=== PATIENT | female | born 1960 | race Caucasian/White ===

== ENCOUNTER 2017-09-26 08:24 | Emergency (ER) | payer BC ==
--- NOTE | 2017-09-26 08:47 | EDM.PDOC ---
ED HPI GENERAL MEDICAL PROBLEM - General Chief Complaint: Upper Extremity Injury/Pain Stated Complaint: LEFT SHOULDER PAIN Time Seen by Provider: 09/26/17 08:47 Source of Information: Reports: Patient History Limitations: Reports: No Limitations - History of Present Illness INITIAL COMMENTS - FREE TEXT/NARRATIVE: History of present illness: []Patient fell down approximately 9 stairs last night landing on her left upper extremity. Patient came in this morning complaining of left upper extremity pain from clavicle to hand. Patient denies any shortness of breath or difficulty breathing, abdominal pain, other extremity pain or back or neck pain. She denies losing consciousness. Patient states she does have carpal tunnel syndrome on her left upper extremity. Review of systems: As per history of present illness and below otherwise all systems reviewed and negative. Past medical history: As per history of present illness and as reviewed below otherwise noncontributory. Surgical history: As per history of present illness and as reviewed below otherwise noncontributory. Social history: No reported history of drug or alcohol abuse. Family history: As per history of present illness and as reviewed below otherwise noncontributory. Physical exam: General: Well developed, well nourished in NAD HEENT: Atraumatic, normocephalic, pupils reactive, negative for conjunctival pallor or scleral icterus, mucous membranes moist, throat clear, neck supple, nontender, trachea midline. Lungs: Clear to auscultation, breath sounds equal bilaterally, superior left chest wall swelling. Heart: S1S2, regular, negative for clicks, rubs, or JVD. Abdomen: Soft, nondistended, nontender. Negative for masses or hepatosplenomegaly. Negative for costovertebral tenderness. Pelvis: Stable nontender. Genitourinary: Deferred. Rectal: Deferred. Extremities: Ecchymosis over the elbow distal edema is mild radial pulses palpable with swelling limited range of motion of the whole upper extremity, negative for cords or calf pain. Neurovascular unremarkable. Neuro: Awake, alert, oriented. Cranial nerves II through XII unremarkable. Cerebellum unremarkable. Patient able to move fingers, brisk capillary refill, she does have numbness to the middle index and thumb. Patient was put in a long posterior splint and arm sling she's given tramadol and morphine for pain while in the ED Diagnostics: []X-rays of left upper extremity show displaced proximal left clavicle, a comminuted intra-articular olecranon fracture, comminuted impacted and angulated fracture distal radius and ulnar styloid fracture Therapeutics: []Pain meds given prior to x-rays taken. Dr. Cabrera was consulted and stated that there would need to be a vascular surgeon present for repair. Impression: []Left clavicular, olecranon and wrist fractures Plan: []Patient preferred to go to [place] and Dr. Contreras manager implementation for orthopedics at [facility] accepted the patient. Patient's IV was left in place as she was a difficult stick her who is a Net Mobile Developer will be driving her to [place] today and will be going to the ER Dr. Contreras excepts the patient and will admit her from there. Definitive disposition and diagnosis as appropriate pending reevaluation and review of above. 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 , - Past Surgical History Female Surgical History: Reports: Section, D&C Social & Family History - Family History Family Medical History: Noncontributory - Tobacco Use Smoking Status *Q: Current Every Day Smoker Years of Tobacco use: 20 Packs/Tins Daily: 0.5 - Recreational Drug Use Recreational Drug Use: No Review of Systems - Review of Systems Review Of Systems: See Below (See history of present illness) ED EXAM, GENERAL - Physical Exam Exam: See Below (See history of present illness) Course - Vital Signs Last Recorded V/S: Last Vital Signs Temp 97.3 F 09/26/17 08:42 Pulse 72 09/26/17 12:51 Resp 16 09/26/17 12:51 BP 140/86 09/26/17 12:51 Pulse Ox 97 09/26/17 12:51 - Orders/Labs/Meds Orders: Active Orders 24 hr Category Date Time Status Chest 2V [CR] Stat Exams 09/26/17 08:52 Taken Chest wo Cont [CT] Stat Exams 09/26/17 10:11 Taken Elbow 2V Lt [CR] Stat Exams 09/26/17 08:53 Taken Forearm 2V Lt [CR] Stat Exams 09/26/17 08:53 Taken Humerus Lt [CR] Stat Exams 09/26/17 08:52 Taken Shoulder Comp Lt [CR] Stat Exams 09/26/17 08:52 Taken Wrist 2V Lt [CR] Stat Exams 09/26/17 08:55 Taken Saline Lock Insert [OM.PC] Stat Oth 09/26/17 09:32 Ordered Meds: Medications Discontinued Medications Generic Name Dose Route Start Last Admin Trade Name Freq PRN Reason Stop Dose Admin Diphenhydramine HCl 25 mg 09/26/17 09:42 09/26/17 10:27 Benadryl IVPUSH 09/26/17 09:43 Not Given ONETIME ONE Methylprednisolone Sodium Succinate 125 mg 09/26/17 09:42 09/26/17 10:27 Solu-Medrol IVPUSH 09/26/17 09:43 Not Given ONETIME ONE Morphine Sulfate 4 mg 09/26/17 11:06 09/26/17 11:19 Morphine IVPUSH 09/26/17 11:07 4 mg ONETIME ONE Administration Ondansetron HCl 4 mg 09/26/17 11:06 09/26/17 11:19 Zofran IVPUSH 09/26/17 11:07 4 mg ONETIME ONE Administration Sodium Chloride 10 ml 09/26/17 08:51 Saline Flush FLUSH ASDIRECTED PRN Keep Vein Open Sodium Chloride 2.5 ml 09/26/17 08:51 Saline Flush FLUSH ASDIRECTED PRN Keep Vein Open Sodium Chloride 10 ml 09/26/17 09:32 09/26/17 10:46 Saline Flush FLUSH 10 ml ASDIRECTED PRN Administration Keep Vein Open Sodium Chloride 2.5 ml 09/26/17 09:32 09/26/17 10:46 Saline Flush FLUSH 2.5 ml ASDIRECTED PRN Administration Keep Vein Open Tramadol HCl 50 mg 09/26/17 08:55 09/26/17 09:04 Ultram PO 09/26/17 08:56 50 mg ONETIME ONE Administration Tramadol HCl 50 mg 09/26/17 12:33 09/26/17 12:40 Ultram PO 09/26/17 12:34 50 mg ONETIME ONE Administration Departure - Departure Time of Disposition: 12:50 Disposition: DC/Tfer to Acute Hospital 02 Condition: Good, Fair Clinical Impression: Closed left clavicular fracture Qualifiers: Encounter type: initial encounter Clavicle location: shaft Fracture alignment: displaced Qualified Code(s): S42.022A - Displaced fracture of shaft of left clavicle, initial encounter for closed fracture Closed olecranon fracture Qualifiers: Encounter type: initial encounter Laterality: left Qualified Code(s): S52.022A - Displaced fracture of olecranon process without intraarticular extension of left ulna, initial encounter for closed fracture Distal radius fracture, left Qualifiers: Encounter type: initial encounter Fracture type: closed Fracture morphology: other intra-articular Qualified Code(s): S52.572A - Other intraarticular fracture of lower end of left radius, initial encounter for closed fracture Fracture of ulnar styloid Qualifiers: Encounter type: initial encounter Fracture type: closed Fracture alignment: nondisplaced Laterality: left Qualified Code(s): S52.615A - Nondisplaced fracture of left ulna styloid process, initial encounter for closed fracture - Discharge Information Referrals: Christian Moulton [Primary Care Provider] - Forms: ED Department Discharge Additional Instructions: The following information is given to patients seen in the emergency department who are being discharged to home. This information is to outline your options for follow-up care. We provide all patients seen in our emergency department with a follow-up referral. The need for follow-up, as well as the timing and circumstances, are variable depending upon the specifics of your emergency department visit. If you don't have a primary care physician on staff, we will provide you with a referral. We always advise you to contact your personal physician following an emergency department visit to inform them of the circumstance of the visit and for follow-up with them and/or the need for any referrals to a consulting specialist. The emergency department will also refer you to a specialist when appropriate. This referral assures that you have the opportunity for follow-up care with a specialist. All of these measure are taken in an effort to provide you with optimal care, which includes your follow-up. Under all circumstances we always encourage you to contact your private physician who remains a resource for coordinating your care. When calling for follow-up care, please make the office aware that this follow-up is from your recent emergency room visit. If for any reason you are refused follow-up, please contact the [facility] Emergency Department at and asked to speak to the emergency department charge nurse. You are being transferred by private vehicle to [facility] please go to the emergency room where Dr. Quintana from orthopedics will be admitting you - My Orders Last 24 Hours: My Active Orders 09/26/17 08:52 Chest 2V [CR] Stat Humerus Lt [CR] Stat Shoulder Comp Lt [CR] Stat 09/26/17 08:53 Elbow 2V Lt [CR] Stat Forearm 2V Lt [CR] Stat 09/26/17 08:55 Wrist 2V Lt [CR] Stat 09/26/17 09:32 Saline Lock Insert [OM.PC] Stat 09/26/17 10:11 Chest wo Cont [CT] Stat - Assessment/Plan Last 24 Hours: My Active Orders 09/26/17 08:52 Chest 2V [CR] Stat Humerus Lt [CR] Stat Shoulder Comp Lt [CR] Stat 09/26/17 08:53 Elbow 2V Lt [CR] Stat Forearm 2V Lt [CR] Stat 09/26/17 08:55 Wrist 2V Lt [CR] Stat 09/26/17 09:32 Saline Lock Insert [OM.PC] Stat 09/26/17 10:11 Chest wo Cont [CT] Stat
[2017-09-26] MEDS ORDERED: Ondansetron 4 MG/2 ML SDV IVPUSH ONE ×2 (08:51→11:06)
[2017-09-26] MEDS ORDERED: Morphine 4 MG/ML Syringe IVPUSH ONE ×2 (08:51→11:06)
[2017-09-26] MEDS ORDERED: Sodium Chloride 0.9% 2.5 ML Syringe FLUSH PRN ×2 (08:51→09:32)
[2017-09-26] MEDS ORDERED: Sodium Chloride 0.9% 10 ML Syringe FLUSH PRN ×2 (08:51→09:32)
[2017-09-26] MEDS ORDERED: traMADol 50 MG Tab PO ONE ×2 (08:55→12:33)
[2017-09-26] MEDS ORDERED: methylPREDNISolone Sodium Succinate 125 MG/2 ML SDV IVPUSH ONE (09:42)
[2017-09-26] MEDS ORDERED: diphenhydrAMINE 50 MG/ML SDV IVPUSH ONE (09:42)
--- NOTE | 2017-09-28 15:53 | CR ---
EXAM DATE: 09/26/17 PATIENT'S AGE: 56 Patient: ANN MICHAUD Facility: [place], [place] Site . Site : 1960 Study: XRay Chest [id number]/13/2018 9:16:50 AM Ordering Physician: Juancho Null Final Report: Pain post fall Findings : Normal cardiac mediastinal silhouette. Lungs are clear of an acute airspace or interstitial process. No effusion or pneumothorax.Proximal left clavicle fracture with one shaft`s width inferior displacement of the lateral clavicle. No additional fractures seen. Dictated by Arianna Miller MD @ Sep 26 2017 9:33AM (Electronic Signature) Report Signed by Proxy. MOOSE
--- NOTE | 2017-09-28 15:54 | CR ---
EXAM DATE: 09/26/17 PATIENT'S AGE: 56 Patient: ANN MICHAUD Facility: [place], [place] Site . Site : 1960 Study: XRay Extremity Left [id number] humerus-09/26/2017 9:17:09 AM Ordering Physician: Juancho Null Final Report: Pain fall 2 views of left humerus. Findings : Normal anatomic alignment. No humeral fractures seen Comminuted intra-articular olecranon fracture suboptimally seen on this study. Dictated by Arianna Miller MD @ Sep 26 2017 9:35AM (Electronic Signature) Report Signed by Proxy. [facility]ENTER[facility]arianela
--- NOTE | 2017-09-28 15:56 | CR ---
EXAM DATE: 09/26/17 PATIENT'S AGE: 56 Patient: ANN MICHAUD Facility: [place], [place] Site . Site : 1960 Study: XRay Extremity Left [id number] wrist-09/26/2017 9:21:49 AM Ordering Physician: Juancho Null Final Report: Fall 2 views of the left wrist. FINDINGS: There is a comminuted impacted and angulated fracture of the distal radius with dorsal angulation. Ulnar styloid fracture present. Soft tissue swelling. Dictated by Arianna Miller MD @ Sep 26 2017 9:36AM (Electronic Signature) Report Signed by Proxy. [facility]
--- NOTE | 2017-09-28 15:57 | CR ---
EXAM DATE: 09/26/17 PATIENT'S AGE: 56 Patient: ANN MICHAUD Facility: [place], [place] Site . Site : 1960 Study: XRay Extremity Left [id number] elbow-09/26/2017 9:36:18 AM Ordering Physician: Juancho Null Final Report: INDICATION: Pain post fall 2 views of left humerus. FINDINGS: There is a mildly comminuted significantly displaced fracture through the mid portion of the olecranon with a 1.8 cm distraction of the proximal portion of the olecranon. Fracture involves the articular surface at several sites. There is an infusion. Soft tissue swelling. No other fracture is definitively seen. Degenerative spurring of the radial head. Impression : 1. Mildly comminuted significantly displaced intra-articular fracture of the olecranon. Dictated by Arianna Miller MD @ Sep 26 2017 9:46AM (Electronic Signature) Report Signed by Proxy. MOOSE
--- NOTE | 2017-09-28 15:59 | CR ---
EXAM DATE: 09/26/17 PATIENT'S AGE: 56 Patient: ANN MICHAUD Facility: [place], [place] Site . Site : 1960 Study: XRay Shoulder Left [id number] shoulder-09/26/2017 9:36:45 AM Ordering Physician: Juancho Null Final Report: Pain post fall 3 views of the left shoulder. FINDINGS: Displaced left proximal clavicle fracture with greater than one shaft`s width displacement of the distal clavicle inferiorly. Glenohumeral articulation is intact. AC joint is intact .no shoulder dislocation. Dictated by Arianna Miller MD @ Sep 26 2017 9:53AM (Electronic Signature) Report Signed by Proxy. MOOSE
--- NOTE | 2017-09-28 16:00 | CR ---
EXAM DATE: 09/26/17 PATIENT'S AGE: 56 Patient: ANN MICHAUD Facility: [place], [place] Site . Site : 1960 Study: XRay Extremity Left [id number] forearm-09/26/2017 9:39:22 AM Ordering Physician: Juancho Null Final Report: Pain post fall 2 views of the left forearm. FINDINGS: Comminuted impacted and angulated distal radius fracture with dorsal angulation. Ulnar styloid fracture. Soft tissue swelling. Slight widening of the scapholunate space which may represent possible disruption of the scapholunate ligament. Comminuted intra-articular displaced olecranon fracture. Soft tissue swelling. Dictated by Arianna Miller MD @ Sep 26 2017 9:55AM (Electronic Signature) Report Signed by Proxy. MOOSE
--- NOTE | 2017-09-28 16:01 | CT ---
EXAM DATE: 09/26/17 PATIENT'S AGE: 56 Patient: ANN MICHAUD Facility: [place], [place] Site . Site : 1960 Study: CT Chest [id number]/13/2018 11:03:28 AM Ordering Physician: Juancho Null Final Report: INDICATION: Pain, Possible Vascular Injury due to Displaced Clavicle Fracture COMPARISON: None. TECHNIQUE: Routine noncontrast axial CT images of the chest. Sagittal and coronal reformatted series were also generated and reviewed. IV contrast was withheld secondary to reported prior anaphylactic reaction. Total exam DLP 465 mGy-cm. FINDINGS: There is mild mosaic attenuation of predominantly in the lower lungs. There is no suspicious pulmonary nodule or mass. The central airways are patent. Heterogeneous appearance of the thyroid. Limited evaluation of the great vessels is unremarkable. There is no concerning mediastinal, hilar or axillary adenopathy. There is no pleural or pericardial effusion. The visualized upper abdominal contents are unremarkable. There are multilevel degenerative changes of the spine. There is a comminuted displaced fracture of the medial aspect of the left clavicle. There is surrounding inflammatory stranding and edema of the left anterior chest wall IMPRESSION: 1. No noncontrast evidence of vascular injury; however, the study is significantly limited due to lack of intravenous contrast. If there is persistent clinical concern, this could be further evaluated with contrast- enhanced MRI. 2. Comminuted displaced fracture of the medial aspect of the left clavicle. 3. Heterogeneous thyroid. Dictated by Colin Mccoy MD @ 09/26/2017 11:24:25 AM Dictated by: Colin Mccoy MD @ 09/26/2017 11:24:46 (Electronic Signature) Report Signed by Proxy. MOOSE
== END 2017-09-26 12:50 ==
LOC: MW.ED 08:24
DX: S52.022A Displaced fracture of olecranon process without intraarticular extension of left ulna, initial encounter for closed fracture (principal); S42.022A Displaced fracture of shaft of left clavicle, initial encounter for closed fracture; S52.615A Nondisplaced fracture of left ulna styloid process, initial encounter for closed fracture; S52.572A Other intraarticular fracture of lower end of left radius, initial encounter for closed fracture; F17.210 Nicotine dependence, cigarettes, uncomplicated; Z79.82 Long term (current) use of aspirin; Z79.899 Other long term (current) drug therapy; Z88.0 Allergy status to penicillin; Z91.041 Radiographic dye allergy status; W10.8XXA Fall (on) (from) other stairs and steps, initial encounter
CPT/HCPCS: 71046; 71250; 73030; 73060; 73070; 73090; 73100; 96374; 96375; 99285; A4566; A9270; J2270; J2405; 99284

== ENCOUNTER 2019-07-16 11:39 | Emergency (ER) | payer BC ==
[2019-07-16] MEDS ORDERED: Ketorolac 60 MG/2 ML SDV IM ONE (12:04)
--- NOTE | 2019-07-16 12:04 | EDM.PDOC ---
ED HPI GENERAL MEDICAL PROBLEM - General Chief Complaint: General Stated Complaint: TOOTH ACHE Time Seen by Provider: 07/16/19 12:03 Source of Information: Reports: Patient History Limitations: Reports: No Limitations - History of Present Illness INITIAL COMMENTS - FREE TEXT/NARRATIVE: HISTORY AND PHYSICAL: History of present illness: Patient is a 58-year-old female presents to the ED with complaint of dental pain. She states she has been having right upper dental pain x 5 days. Today she woke up with swelling in her right cheek. She has not been able to get in to a dentist today so came to the ED. She denies fevers, chills, trismus, nausea , vomiting. Review of systems: As per history of present illness and below otherwise all systems reviewed and negative. Past medical history: As per history of present illness and as reviewed below otherwise noncontributory. Surgical history: As per history of present illness and as reviewed below otherwise noncontributory. Social history: No reported history of drug or alcohol abuse. Family history: As per history of present illness and as reviewed below otherwise noncontributory. Physical exam: General: Patient sitting comfortably in no acute distress and nontoxic appearing HEENT: There is swelling without erythema to the right cheek. Poor dentition throughout. Teeth #2 & 3 with caries and adjacent gum swelling and erythema. Atraumatic, normocephalic, pupils reactive, negative for conjunctival pallor or scleral icterus, mucous membranes moist, throat clear, neck supple, nontender, trachea midline. No meningeal signs. Lungs: Clear to auscultation, breath sounds equal bilaterally, chest nontender. Heart: S1S2, regular, negative for clicks, rubs, or overt murmur. Abdomen: Soft, nondistended, nontender. Negative for masses or hepatosplenomegaly. Negative for costovertebral tenderness. No rigidity, rebound , guarding. Pelvis: Stable nontender. Genitourinary: Deferred. Rectal: Deferred. Extremities: Atraumatic, negative for cords or calf pain. Neurovascular unremarkable. Neuro: Awake, alert, oriented. Cranial nerves II through XII unremarkable. Cerebellum unremarkable. Motor and sensory unremarkable throughout. Exam nonfocal. Notes: Diagnostics: Therapeutics: Toradol 60mg IM Dental balls Prescriptions: Clindamycin Impression: Dentalgia, dental infection Plan: Take antibiotic as instructed Follow up with dentist Return to ED as needed as discussed Definitive disposition and diagnosis as appropriate pending reevaluation and review of above. tooth right upper Pain Score (Numeric/FACES): 8 - Related Data Allergies Allergy/AdvReac Type Severity Reaction Status Date / Time Iodinated Contrast Media Allergy Cannot Verified 07/16/19 11:47 [Iodinated Contrast- Oral Remember and IV Dye] Penicillins Allergy Cannot Verified 07/16/19 11:47 Remember Home Meds: Home Meds Aspirin [Salma Chewable Aspirin] 81 mg PO DAILY 09/26/17 [History] Lisinopril 40 mg PO DAILY 09/26/17 [History] Sertraline [Zoloft] 100 mg PO DAILY 09/26/17 [History] amLODIPine Besylate [Amlodipine Besylate] 10 mg PO DAILY 09/26/17 [History] hydroCHLOROthiazide [Hydrochlorothiazide] 25 mg PO DAILY 09/26/17 [History] Albuterol [Ventolin HFA] 2 puff INH Q4H PRN #1 inhaler 10/16/18 [Rx] Clindamycin HCl 300 mg PO TID 10 Days #30 capsule 07/16/19 [Rx] Past Medical History 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: Reports: Hypertension 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 , Psychiatric History: Reports: Depression - Infectious Disease History Infectious Disease History: Reports: Chicken Pox - Past Surgical History Other HEENT Surgeries/Procedures: wears glasses GI Surgical History: Reports: Appendectomy Female Surgical History: Reports: D&C, Hysterectomy Musculoskeletal Surgical History: Reports: Shoulder Surgery, Other (See Below) Other Musculoskeletal Surgeries/Procedures:: shoulder, arm, wrist sx Social & Family History - Family History Family Medical History: Noncontributory - Tobacco Use Smoking Status *Q: Current Every Day Smoker Years of Tobacco use: 30 Packs/Tins Daily: 0.5 - Caffeine Use Caffeine Use: Reports: Coffee Caffeine Use Comment: 4-5 cups coffee/day - Recreational Drug Use Recreational Drug Use: No ED ROS GENERAL - Review of Systems Review Of Systems: ROS reveals no pertinent complaints other than HPI. ED EXAM, GENERAL - Physical Exam Exam: See Below (see dictation) Course - Vital Signs Last Recorded V/S: Last Vital Signs Temp 96.0 F 07/16/19 11:43 Pulse 89 07/16/19 11:43 Resp 18 07/16/19 11:43 BP 178/117 H 07/16/19 11:43 Pulse Ox 96 07/16/19 11:43 - Orders/Labs/Meds Meds: Medications Discontinued Medications Generic Name Dose Route Start Last Admin Trade Name Bigg PRN Reason Stop Dose Admin Benzocaine 2 each 07/16/19 12:07 07/16/19 12:26 Hurricaine One 20% MUCMEM 07/16/19 12:08 2 each ONETIME ONE Administration Ketorolac Tromethamine 60 mg 07/16/19 12:04 07/16/19 12:16 Toradol IM 07/16/19 12:05 60 mg ONETIME ONE Administration Lidocaine HCl 15 ml 07/16/19 12:07 07/16/19 12:26 Xylocaine 2% Viscous PO 07/16/19 12:08 15 ml ONETIME ONE Administration Departure - Departure Time of Disposition: 12:07 Disposition: Home, Self-Care 01 Condition: Good Clinical Impression: Dentalgia, Dental infection - Discharge Information Prescriptions: Clindamycin HCl 300 mg PO TID 10 Days #30 capsule Instructions: Dental Abscess, [id number] Referrals: Tania Monique NP [Primary Care Provider] - Forms: ED Department Discharge Additional Instructions: The following information is given to patients seen in the emergency department who are being discharged to home. This information is to outline your options for follow-up care. We provide all patients seen in our emergency department with a follow-up referral. The need for follow-up, as well as the timing and circumstances, are variable depending upon the specifics of your emergency department visit. If you don't have a primary care physician on staff, we will provide you with a referral. We always advise you to contact your personal physician following an emergency department visit to inform them of the circumstance of the visit and for follow-up with them and/or the need for any referrals to a consulting specialist. The emergency department will also refer you to a specialist when appropriate. This referral assures that you have the opportunity for follow-up care with a specialist. All of these measure are taken in an effort to provide you with optimal care, which includes your follow-up. Under all circumstances we always encourage you to contact your private physician who remains a resource for coordinating your care. When calling for follow-up care, please make the office aware that this follow-up is from your recent emergency room visit. If for any reason you are refused follow-up, please contact the [facility] Emergency Department at and asked to speak to the emergency department charge nurse. [facility] [address] [place] [id number] [id number] Take antibiotic as instructed Follow up with dentist Return to ED as needed as discussed
[2019-07-16] MEDS ORDERED: Benzocaine 20% Topical Spray UD MUCMEM ONE (12:07)
[2019-07-16] MEDS ORDERED: Lidocaine 2% Viscous Solution 15 ML Cup PO ONE (12:07)
== END 2019-07-16 12:30 | disposition home or self-care (01) ==
LOC: MW.ED 11:39
DX: K04.7 Periapical abscess without sinus (principal); I10 Essential (primary) hypertension; F32.9 Major depressive disorder, single episode, unspecified; F17.210 Nicotine dependence, cigarettes, uncomplicated; Z88.0 Allergy status to penicillin; Z91.041 Radiographic dye allergy status; Z79.82 Long term (current) use of aspirin; Z79.899 Other long term (current) drug therapy
CPT/HCPCS: 96372; 99282; A9270; J1885

== ENCOUNTER 2020-03-24 12:18 | Emergency (ER) | payer BC ==
--- NOTE | 2020-03-24 12:57 | EDM.PDOC ---
ED HPI GENERAL MEDICAL PROBLEM - General Chief Complaint: Bite:Animal, Insect Stated Complaint: SPIDER BITE Time Seen by Provider: 03/24/20 12:42 - History of Present Illness INITIAL COMMENTS - FREE TEXT/NARRATIVE: History of present illness: [] Patient presents with general malaise feelings of chills and subjective fever and present for 3 days and she got back from her [place] in [place] she noticed a sore painful spot on her buttocks on the left which she is attributing to an insect bite and is painful to touch but not raised or swollen. Hypertension no other medical problems nothing makes it better or worse Review of systems: As per history of present illness and below otherwise all systems reviewed and negative. Past medical history: As per history of present illness and as reviewed below otherwise noncontribut ory. Surgical history: As per history of present illness and as reviewed below otherwise noncontributory. Social history: No reported history of drug or alcohol abuse. Family history: As per history of present illness and as reviewed below otherwise noncontributory. Physical exam: HEENT: Atraumatic, normocephalic, pupils reactive, negative for conjunctival pallor or scleral icterus, mucous membranes moist, throat clear, neck supple, nontender, trachea midline. Lungs: Clear to auscultation, breath sounds equal bilaterally, chest nontender. Heart: S1S2, regular, negative for clicks, rubs, or JVD. Abdomen: Soft, nondistended, nontender. Negative for masses or hepatosplenomegaly. Negative for costovertebral tenderness. Pelvis: Stable nontender. Genitourinary: Deferred. Rectal: Deferred. Extremities: Atraumatic, negative for cords or calf pain. Neurovascular unremarkable. Neuro: Awake, alert, oriented. Cranial nerves II through XII unremarkable. Cerebellum unremarkable. Motor and sensory unremarkable throughout. Exam nonfocal. Skin: There is a 6 cm circular area of erythema that is tender but not raised or swollen there is no induration or focal abscess noted Diagnostics: [] Therapeutics: [] Impression: Cellulitis [] Plan: DC home on doxycycline follow-up with primary care [] Definitive disposition and diagnosis as appropriate pending reevaluation and review of above. Left Lower Buttock Pain Score (Numeric/FACES): 6 - Related Data Allergies Allergy/AdvReac Type Severity Reaction Status Date / Time Iodinated Contrast Media Allergy Cannot Verified 03/24/20 12:37 [Iodinated Contrast- Oral Remember and IV Dye] latex Allergy Rash Verified 03/24/20 12:37 Penicillins Allergy Cannot Verified 03/24/20 12:37 Remember Home Meds: Home Meds Aspirin [Salma Chewable Aspirin] 81 mg PO DAILY 09/26/17 [History] Sertraline [Zoloft] 100 mg PO DAILY 09/26/17 [History] amLODIPine Besylate [Amlodipine Besylate] 10 mg PO DAILY 09/26/17 [History] hydroCHLOROthiazide [Hydrochlorothiazide] 50 mg PO DAILY 09/26/17 [History] Albuterol [Ventolin HFA] 2 puff INH Q4H PRN #1 inhaler 10/16/18 [Rx] Doxycycline [Vibra-Tabs] 100 mg PO BID #20 tablet 03/24/20 [Rx] Losartan [Cozaar] 50 mg PO DAILY 03/24/20 [History] Past Medical History 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: Reports: Hypertension Respiratory History: Reports: Other (See Below) Other Respiratory History: Chronic Smoker Gastrointestinal History: Reports: None Genitourinary History: Reports: None 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 , Musculoskeletal History: Reports: None Neurological History: Reports: None Psychiatric History: Reports: Anxiety, Depression Endocrine/Metabolic History: Reports: None Hematologic History: Reports: None Immunologic History: Reports: None Oncologic (Cancer) History: Reports: None Dermatologic History: Reports: None - Infectious Disease History Infectious Disease History: Reports: None - Past Surgical History Head Surgeries/Procedures: Reports: None Other HEENT Surgeries/Procedures: wears glasses Respiratory Surgical History: Reports: None GI Surgical History: Reports: Appendectomy Female Surgical History: Reports: D&C, Hysterectomy Musculoskeletal Surgical History: Reports: Shoulder Surgery, Other (See Below) Other Musculoskeletal Surgeries/Procedures:: shoulder, arm, wrist sx Oncologic Surgical History: Reports: None Social & Family History - Family History Family Medical History: Noncontributory - Tobacco Use Smoking Status *Q: Current Every Day Smoker Years of Tobacco use: 30 Packs/Tins Daily: 1 Used Tobacco, but Quit: No Second Hand Smoke Exposure: No - Caffeine Use Caffeine Use: Reports: Coffee Caffeine Use Comment: 4-5 cups coffee/day - Recreational Drug Use Recreational Drug Use: No ED ROS GENERAL - Review of Systems Review Of Systems: See Below ED EXAM, ANIMAL BITE - Physical Exam Exam: See Below Course - Vital Signs Last Recorded V/S: Last Vital Signs Temp 36.1 C 03/24/20 12:39 Pulse 89 03/24/20 12:39 Resp 16 03/24/20 12:39 BP 141/89 H 03/24/20 12:39 Pulse Ox 93 L 03/24/20 12:39 Departure - Departure Time of Disposition: 12:57 Disposition: Home, Self-Care 01 Condition: Good Clinical Impression: Cellulitis - Discharge Information *PRESCRIPTION DRUG MONITORING PROGRAM REVIEWED*: Not Applicable *COPY OF PRESCRIPTION DRUG MONITORING REPORT IN PATIENT ARIANNE: Not Applicable Prescriptions: Doxycycline [Vibra-Tabs] 100 mg PO BID #20 tablet Referrals: Candace Pan NP [Primary Care Provider] - Additional Instructions: The following information is given to patients seen in the emergency department who are being discharged to home. This information is to outline your options for follow-up care. We provide all patients seen in our emergency department with a follow-up referral. The need for follow-up, as well as the timing and circumstances, are variable depending upon the specifics of your emergency department visit. If you don't have a primary care physician on staff, we will provide you with a referral. We always advise you to contact your personal physician following an emergency department visit to inform them of the circumstance of the visit and for follow-up with them and/or the need for any referrals to a consulting specialist. The emergency department will also refer you to a specialist when appropriate. This referral assures that you have the opportunity for follow-up care with a specialist. All of these measure are taken in an effort to provide you with optimal care, which includes your follow-up. Under all circumstances we always encourage you to contact your private physician who remains a resource for coordinating your care. When calling for follow-up care, please make the office aware that this follow-up is from your recent emergency room visit. If for any reason you are refused follow-up, please contact the [facility] Emergency Department at and asked to speak to the emergency department charge nurse. Sepsis Event Note (ED) - Evaluation Sepsis Screening Result: No Definite Risk - Focused Exam Vital Signs: Vital Signs Temp Pulse Resp BP Pulse Ox 03/24/20 12:39 36.1 C 89 16 141/89 H 93 L
== END 2020-03-24 13:14 | disposition home or self-care (01) ==
LOC: MW.ED 12:18
DX: L03.317 Cellulitis of buttock (principal); I10 Essential (primary) hypertension; F41.9 Anxiety disorder, unspecified; F32.9 Major depressive disorder, single episode, unspecified; F17.210 Nicotine dependence, cigarettes, uncomplicated; Z88.0 Allergy status to penicillin; Z91.041 Radiographic dye allergy status; Z91.040 Latex allergy status; Z79.82 Long term (current) use of aspirin; Z79.899 Other long term (current) drug therapy
CPT/HCPCS: 99282

== ENCOUNTER 2024-01-15 08:56 | Emergency (ER) | payer BC ==
[2024-01-15 10:27] LABS: APPEARANCE,URINE CLOUDY; COLOR,URINE RED; GLUCOSE,URINE NEGATIVE (NEGATIVE); KETONES,URINE NEGATIVE (NEGATIVE); LEUKOCYTE ESTERASE,URINE MODERATE (NEGATIVE); NITRITE,URINE NEGATIVE (NEGATIVE); OCCULT BLOOD,URINE LARGE (NEGATIVE); PH,URINE 7.5 (5.0-8.0); PROTEIN,URINE 100 mg/dL (NEGATIVE); UROBILINOGEN,URINE 0.2 EU/dL (<2.0)
[2024-01-15 10:28] LABS: BILIRUBIN,URINE SMALL (NEGATIVE)
[2024-01-15 10:37] LABS: BACTERIA,URINE FEW (NEGATIVE); EPITHELIAL CELLS,URINE FEW (NONE-FEW); RBC,URINE TOO NUMEROUS TO CT (0-2/HPF); WBC,URINE 50-75 (0-5/HPF)
== END 2024-01-15 11:26 | disposition home or self-care (01) ==
LOC: MW.ED 08:56
DX: N39.0 Urinary tract infection, site not specified (principal); I10 Essential (primary) hypertension; Z79.82 Long term (current) use of aspirin; Z79.899 Other long term (current) drug therapy; Z88.0 Allergy status to penicillin; Z91.040 Latex allergy status; Z91.041 Radiographic dye allergy status; Z75.8 Other problems related to medical facilities and other health care
CPT/HCPCS: 81001; 81003; 87086; 87088; 87186; 99283; 99284